=== PATIENT | male | born 1975 | race Caucasian/White ===

== ENCOUNTER 2018-05-07 08:31 | Outpatient (CLI) | payer OTHER ==
--- NOTE | 2018-05-07 09:09 | RAD ---
TWO VIEWS CHEST: HISTORY: Cough. FINDINGS: PA and lateral views of the chest were obtained. The lungs are well aerated. No evidence of acute intrathoracic abnormality is seen. No evidence of effusions, pneumonia, and pneumothorax seen. IMPRESSION: Hyperaeration of the lungs compatible with air trapping. No acute intrathoracic abnormality is seen. POS: [facility]
== END 2018-05-07 08:32 | disposition home or self-care (01) ==
LOC: RAD-FRANK 08:31
PROVIDERS: ATTEND Internal Medicine
DX: R05 Cough (principal); R91.8 Other nonspecific abnormal finding of lung field
CPT/HCPCS: 71046

== ENCOUNTER 2021-09-24 09:30 | Emergency (ER) | payer OTHER ==
[2021-09-24] MEDS ORDERED: Naloxone HCl 2 mg/2 ml Syringe ONE (09:53)
[2021-09-24 10:12] LABS: #Eosinphils 0.7 thou/uL (0.0-0.7); #Lymphocytes 1.7 thou/uL (1.20-3.40); #Monocytes 0.8 thou/uL (0.11-0.59); #Neutrophils 5.2 thou/uL (1.40-6.50); %Basophils 0.4 % (0.0-1.0); %Eosinophils 8.5 % (0.0-10.0); %Lymphocytes 20.3 % (21.0-51.0); %Monocytes 9.9 % (0.0-10.0); %Neutrophils 60.8 % (42.0-75.0); Hemoglobin 16.7 g/dL (14.0-18.0); Mean Corpuscular HGB CONC 32.5 g/dL (32.0-36.0); Mean Corpuscular Hemoglobin 33.7 pg (27.0-31.0); Mean Platelet Volume 7.1 fL (7.4-10.4); Platelet Count 369 thou/uL (130-400); RBC Distribution Width 12.3 % (11.5-14.5); Red Blood Cell (RBC) Count 4.96 mill/uL (4.70-6.10); White Blood Cell (WBC) Count 8.5 thou/uL (4.8-10.8)
[2021-09-24 10:53] LABS: Bacteria/HPF 3+ HPF (None Seen); Bilirubin Negative (Negative); Blood, Urine Trace (Negative); Clarity Clear (Clear); Glucose, Urine (Dipstick) Normal (Negative); Ketone, Urine Negative (Negative); Leukocyte Negative Leu/uL (Negative); Nitrite Negative (Negative); Protein, Urine (Dipstick) 10 mg/dL (Neg-Trace); Specific Gravity, Urine 1.017 (1.002-1.036); Squamous Epithelial 0-3 HPF (0-3); Urobilinogen Normal mg/dL (Less than 2); WBC/HPF 0-3 HPF (0-3); pH, Urine 7.5 (5.0-9.0)
[2021-09-24 10:59] LABS: Amphetamine Not Detected (NotDetected); Barbiturates Screen Not Detected (NotDetected); Benzodiazepine Screen Not Detected (NotDetected); Cocaine Metabolite Screen Not Detected (NotDetected); Methadone Not Detected (NotDetected); Methamphetamine Not Detected (NotDetected); Opiate Screen Detected (NotDetected); Oxycodone Screen Not Detected (NotDetected); Phencyclidine (PCP) Not Detected (NotDetected); THC/Cannabinoid Screen Detected (NotDetected); Tricyclic Screen Not Detected (NotDetected)
[2021-09-24 11:29] LABS: Albumin 3.9 g/dL (3.5-5.0)
[2021-09-24 11:31] LABS: Chloride 107 mmol/L (98-107); Potassium 3.9 mmol/L (3.5-5.1); Sodium 136 mmol/L (136-145)
[2021-09-24 11:32] LABS: Calcium 8.9 mg/dL (7.8-10.44); Globulin 2.7 g/dL (2.4-3.5); Glucose 96 mg/dL (70-105); Protein, Total 6.6 g/dL (6.0-8.3)
[2021-09-24 11:33] LABS: Anion Gap 11 mmol/L (10-20); Carbon Dioxide 22 mmol/L (22-29)
[2021-09-24 11:34] LABS: Alcohol Less than 10 mg/dL (Less than 10); Bilirubin, Total 0.5 mg/dL (0.2-1.2)
[2021-09-24 11:35] LABS: Alkaline Phosphatase 58 U/L (40-110)
[2021-09-24 11:36] LABS: BUN (Urea Nitrogen) 11 mg/dL (8.9-20.6); Calc. Creatinine Clearance 0 mL/min (70-130)
[2021-09-24 11:37] LABS: AST (SGOT) 22 U/L (5-34); Acetaminophen Less than 6.0 mcg/mL (10.0-30.0); Salicylate Less than 8.0 mg/dL (15.0-30.0)
[2021-09-24 11:38] LABS: ALT (SGPT) 15 U/L (8-55)
[2021-09-24] MEDS ORDERED: Losartan 25 MG TAB PO SCH (14:45)
[2021-09-24] MEDS ORDERED: levETIRAcetam 500 MG TAB PO SCH (15:00)
[2021-09-24] MEDS ORDERED: Acetaminophen 500 MG TAB ONE ×2 (15:56→16:49)
[2021-09-24] MEDS ORDERED: levETIRAcetam in NS 0 ML ONE (16:32)
[2021-09-24] MEDS ORDERED: OLANZapine 5 MG TAB ONE (16:35)
[2021-09-24] MEDS ORDERED: Lithium Carbonate 150 MG CAP PO SCH (17:00)
[2021-09-24 17:52] LABS: SARS-CoV-2 NAA Rapid Test Not Detected (NotDetected)
[2021-09-24] MEDS ORDERED: OLANZapine 5 MG TAB PO SCH (21:00)
[2021-09-25] MEDS ORDERED: Losartan 25 MG TAB PO SCH (09:00)
== END 2021-09-25 10:03 ==
LOC: ERS 09:30
DX: S80.211A Abrasion, right knee, initial encounter (principal); F29 Unspecified psychosis not due to a substance or known physiological condition; I10 Essential (primary) hypertension; F17.210 Nicotine dependence, cigarettes, uncomplicated; X58.XXXA Exposure to other specified factors, initial encounter; Z20.822 Contact with and (suspected) exposure to COVID-19; Z79.899 Other long term (current) drug therapy
CPT/HCPCS: 36415; 70450; 71045; 80053; 80178; 80306; 80307; 81003; 81015; 84443; 85025; 87086; 93005; 94760; 96374; J1953; J2310; U0002

== ENCOUNTER 2022-01-13 06:43 | Emergency (ER) | payer OTHER ==
[2022-01-13] MEDS ORDERED: levETIRAcetam 500 MG/5 ML VIAL ONE (07:12)
[2022-01-13] MEDS ORDERED: Acetaminophen 500 MG TAB ONE (07:12)
== END 2022-01-13 08:09 ==
LOC: ERS 06:43
DX: S01.511A Laceration without foreign body of lip, initial encounter (principal); R56.9 Unspecified convulsions; M54.2 Cervicalgia; I10 Essential (primary) hypertension; F17.210 Nicotine dependence, cigarettes, uncomplicated; W18.00XA Striking against unspecified object with subsequent fall, initial encounter; Y92.149 Unspecified place in prison as the place of occurrence of the external cause; Z79.899 Other long term (current) drug therapy
CPT/HCPCS: 72125; 96374; J1953